=== PATIENT | female | born 1955 | race Asian ===

== ENCOUNTER 2018-07-01 09:02 | Emergency (ER) | payer BC ==
[2018-07-01 09:46] VITALS: BP 138/77
--- NOTE | 2018-07-01 10:56 | UC ---
Throat Pain/Nasal Elijah HPI - HPI Summary HPI Summary: 63-year-old woman comes in with more than a week of sinus drainage chest congestion and feeling ill. Overnight she started getting short of breath with some wheezing. She does have a history of asthma. Now she also has a frontal headache. She has psoriatic arthritis. She took her asthma medications morning which did help with the shortness of breath. No fever. - History of Current Complaint Chief Complaint: UCGeneralIllness Stated Complaint: CHEST CONGESTION, AND ASTHMA Time Seen by Provider: 07/01/18 10:43 Pain Intensity: 0 - Allergies/Home Medications Allergies/Adverse Reactions: Allergies Allergy/AdvReac Type Severity Reaction Status Date / Time celecoxib [From Celebrex] Allergy Hives Verified 07/01/18 09:35 ciprofloxacin Allergy Vomiting Verified 07/01/18 09:35 clarithromycin [From Biaxin] Allergy Vomiting, Verified 07/01/18 09:35 diarrhea hydroxychloroquine Allergy Hives Verified 07/01/18 09:35 [From Plaquenil] SHRIMP Allergy Hives Uncoded 07/01/18 09:35 PMH/Surg Hx/FS Hx/Imm Hx - Additional Past Medical History Additional PMH: Psoriatic arthritis Endocrine History: Diabetes Respiratory History: Asthma - Surgical History Surgical History: Yes Surgery Procedure, Year, and Place: LEFT ROTATOR CUFF REPAIR 11/2011 [facility]. RIGHT KNEE ACL-2010 [facility]. 2 C-SECTIONS. RT WRIST REMOVAL GANGLION CYST 1997. BILAT CATARACTS 2014 [facility]. left middle finger distal joint fused 06/16/15. RT BREAST LUMPECTOMY - 2003. L4-5 laminectomy - [place] 12/2014. LEFT HAND SURGERY [facility] 2013. RIGHT TOE SURGERY. 01/2018 - right rotator cuff repair w/ Dr Maksim Martinez @ [place] - Family History Known Family History: Positive: None - Social History Alcohol Use: None Substance Use Type: None Substance Use Comment - Amount & Last Used: oxycodone Smoking Status (MU): Never Smoked Tobacco Have You Smoked in the Last Year: No - Immunization History Most Recent Influenza Vaccination: 2012 Most Recent Tetanus Shot: 2002 Most Recent Pneumonia Vaccination: 2002 Review of Systems Constitutional: Chills Skin: Negative Eyes: Drainage ENT: Sore Throat, Nasal Discharge, Sinus Congestion, Sinus Pain/Tenderness Respiratory: Shortness Of Breath, Cough, Other - Wheezing Cardiovascular: Negative Gastrointestinal: Negative Motor: Negative Neurovascular: Negative Musculoskeletal: Negative Neurological: Negative Psychological: Negative Is Patient Immunocompromised?: Yes - psoriatic arthritis medication All Other Systems Reviewed And Are Negative: Yes Physical Exam Triage Information Reviewed: Yes Appearance: No Pain Distress - MILD, Well-Nourished, Ill-Appearing Vital Signs: Initial Vital Signs Temp 97 F 07/01/18 09:41 Pulse 100 07/01/18 09:41 Resp 18 07/01/18 09:41 BP 138/77 07/01/18 09:41 Pulse Ox 99 07/01/18 09:41 Vital Signs Reviewed: Yes Eyes: Positive: Discharge ENT: Positive: Pharyngeal erythema, Nasal congestion, Nasal drainage, TMs normal. Negative: Tonsillar swelling Neck exam: Normal Neck: Positive: Supple, Nontender Respiratory: Positive: No respiratory distress, No accessory muscle use, Rhonchi Cardiovascular Exam: Normal Cardiovascular: Positive: RRR Musculoskeletal Exam: Normal Musculoskeletal: Positive: Strength Intact, ROM Intact Neurological Exam: Normal Neurological: Positive: Alert Psychological Exam: Normal Psychological: Positive: Age Appropriate Behavior Skin Exam: Normal Throat Pain/Nasal Course/Dx - Course Course Of Treatment: At this time the patient is getting worse and she has a potential for being immunocompromised to to her psoriatic arthritis medication. We will start Augmentin which she tells me he works for her. Also prescribed prednisone. We discussed the use of it and her diabetes that right now the patient plans on taking the prednisone as needed and also watch her sugars closely. She will go and use her asthma medications at home. Follow-up with primary care doctor recheck checked sooner if worse - Differential Dx/Diagnosis Provider Diagnoses: BRONCHITIS. ASTHMA. SINUSITIS. CONJUNCTIVITIS Discharge - Sign-Out/Discharge Documenting (check all that apply): Patient Departure All imaging exams completed and their final reports reviewed: No Studies - Discharge Plan Condition: Stable Disposition: HOME Prescriptions: Amoxicillin/Clavulanate TAB* [Augmentin TAB 875*] 875 mg PO BID #20 tab predniSONE TAB* [Deltasone 20 MG TAB*] 40 mg PO DAILY #10 tab Tobramycin 0.3% OPHTH.JOHNNY* 1 drop BOTH EYES Q4H #1 btl Patient Education Materials: Acute Bronchitis (ED), Asthma (ED), Sinusitis (ED) , Conjunctivitis (ED) Referrals: Karime Eric MD [Primary Care Provider] - - Billing Disposition and Condition Condition: STABLE Disposition: Home
== END 2018-07-01 11:05 | disposition home or self-care (01) ==
LOC: UCEAST 09:02
DX: J45.909 Unspecified asthma, uncomplicated (principal); J32.9 Chronic sinusitis, unspecified; H10.30 Unspecified acute conjunctivitis, unspecified eye; Z88.6 Allergy status to analgesic agent; Z88.1 Allergy status to other antibiotic agents; Z91.013 Allergy to seafood
CPT/HCPCS: 99212; G0463

== ENCOUNTER → 2019-06-20 09:54 | Day surgery (SDC) | payer MEDICARE ==
[~2019-06-20 09:54] MED LIST: Buffered Lidocaine 1% SYRIN* 1 ML/SYRINGE INTRADERM ONE; Bupivacaine 0.25% SDV PF* 10 ML VIAL INJ ONE; Dexamethasone IV* 4 MG/ML 1 ML (4 MG) IV SLOW PU ONE; Dexamethasone IV* 4 MG/ML 1 ML (4 MG) ONE; DiMENhydriNATE IV* 50 MG/ML VIAL IV PUSH PRN; Lactated Ringers 1000 ML Bag* 1,000 ML IV SCH; Lidocaine 1% INJ* 10 MG/ML 30 ML SDV ONE; Lidocaine 2% PF * 5 ML VIAL ONE; Midazolam* 1 MG/ML 2 ML VIAL (2 MG) ONE; Naloxone* 0.4 MG/ML 1 ML VIAL IV PRN; Ondansetron INJ* 2 MG/ML VIAL IV PRN; Ondansetron INJ* 2 MG/ML VIAL ONE; Propofol* 10 MG/ML 20 ML BTL ONE; ceFAZolin 2 GM in NS PREMIX(*) 2 GM/100 ML BAG IVPB ONE; fentaNYL* 50 MCG/ML 2 ML VIAL (100 MCG VIAL) IV PRN; fentaNYL* 50 MCG/ML 2 ML VIAL (100 MCG VIAL) ONE; oxyCODONE/Acetamin 5/325 MG* TAB PO PRN
[2019-06-20 14:58] VITALS: BP 126/77
--- NOTE | 2019-06-20 21:25 | PM ---
CC: Dr. Silver Santacruz * [facility] NOTE: DATE OF VISIT: 06/20/19 CHIEF COMPLAINT: Low back and left leg pain. HISTORY: The patient is a 64-year-old female who is followed in the [facility]. The patient suffers from postlaminectomy syndrome and is scheduled today to undergo a percutaneous dorsal column stimulator trial lead placement. The risks, benefits, and alternatives were discussed with the patient including the risk of infection, bleeding, nerve injury, postdural puncture headache, and failure of the device to work. After going over the procedure in detail as well as the risks, informed consent was obtained. PREOP DIAGNOSIS: Postlaminectomy syndrome. POSTOP DIAGNOSIS: Postlaminectomy syndrome. PROCEDURE: Dorsal column stimulator trial lead placement. ANESTHESIA: Local MAC per Dr. Mercer. SURGEON: Floyd Avendano MD. CONDUIT WORKER: None. ESTIMATED BLOOD LOSS: Minimal. SPECIMEN: None. FLUIDS: Per Anesthesia. DESCRIPTION OF PROCEDURE: The patient was brought to the operating suite and placed prone on the operative table. Her low back was prepped and draped in the usual sterile fashion. Using fluoroscopy, I identified the T11-12 interspace and I anesthetized the skin and subcutaneous tissues over that pedicles of L1 on the right and left side. An #11 blade was used to make a skin yimi and a 14-gauge Coude epidural needle was used to identify the epidural space at the T11-12 level using loss of resistance to air technique. There was no CSF, blood, or paresthesias noted. There was negative aspiration. A 16-contact Infinion lead was passed into the epidural space to the top of the T5 vertebral body. I then used an #11 blade to make a skin yimi over the L1 pedicle. I then used a 14-gauge Coude epidural needle to identify the epidural space using loss of resistance to air technique. There was no CSF, blood, or paresthesias noted. There was negative aspiration. I passed a 16- contact Infinion lead into the epidural space and guided it to the left of midline to lie parallel to the other lead. Lateral fluoroscopic view was taken , which showed good posterior placement in the epidural space. I then started to test the leads and got good back coverage with the placement leads using the upper contacts of the both leads. The stylets and needles were withdrawn. The leads were anchored to the skin using the silicone anchoring boot and 3-0 Prolene suture. A silk suture was used to cinch the lead to the anchor. Mastisol and Steri-Strips were used to secure the leads as well, sterile dressings were applied, and the patient was brought to the recovery room where her stimulator will be programed by the [employer] personal banking representative. She will follow up with us pain clinic as scheduled next week. She has been given my phone number to contact me or the [employer] representatives as needed during the trial and our office will be in touch with her to see how she is doing next week. [id number]/CPS #: [id number] MTDD
== END | disposition home or self-care (01) ==
LOC: OR 09:54
PROVIDERS: ATTEND Anesthesiology Pain Medicine
DX: M96.1 Postlaminectomy syndrome, not elsewhere classified (principal); I10 Essential (primary) hypertension; J45.909 Unspecified asthma, uncomplicated; K21.9 Gastro-esophageal reflux disease without esophagitis; E03.9 Hypothyroidism, unspecified; Z85.3 Personal history of malignant neoplasm of breast; E11.9 Type 2 diabetes mellitus without complications; Z79.84 Long term (current) use of oral hypoglycemic drugs; L40.50 Arthropathic psoriasis, unspecified
CPT/HCPCS: 76000; C1897; J0690; J1100; J2250; J2405; J2704; J3010; J3490

== ENCOUNTER 2019-06-25 18:47 | Emergency (ER) | payer MEDICARE ==
--- OUTSIDE RECORDS SUMMARY | 2019-06-25 18:55 | XMS REPORT | Continuity of Care Document ---
:1955 External Reference #:[id number] Author Name Salbador Peraza M.D. 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 Onset: 2014 Spinal stenosis of lumbar region Navdeep Ochoa M.D. Onset: 10/21/2014 Paronychia of finger Ngoc Taveras M.D. Onset: 04/26/2015 Localized, primary osteoarthritis of the hand Ngoc Taveras M.D. Onset: Psoriatic arthritis with distal Tacho Zelaya M.D. Onset: 03/16/2016 interphalangeal joint involvement Displacement of lumbar intervertebral disc Tacho Zelaya M.D. Onset: 2015 without myelopathy Lumbar spondylosis Tacho Zelaya M.D. Onset: 03/16/2016 Taking medication Tacho Zelaya M.D. Onset: 03/16/2016 Mild recurrent major depression Tacho Zelaya M.D. Onset: 03/16/2016 Social History Type Date Description Comments Sex Unknown ETOH Use Denies alcohol use Tobacco Use Start: Unknown Patient has never smoked Recreational Drug Use Denies Drug Use Smoking Status Reviewed: 05/23/19 Patient has never smoked Exercise Type/Frequency Exercises regularly Allergies, Adverse Reactions, Alerts Active Allergies Reaction Severity Comments Date Cipro 10/23/2013 Biaxin 10/23/2013 Plaquenil 10/23/2013 Shellfish-derived Products 10/07/2014 Celebrex rash 11/30/2016 Medications Active Medications SIG Qnty Indications Ordering Date Provider Naproxen take 1 tablet by 60tabs L40.50 Salbador Peraza, 05/23/2019 500mg mouth every 12 M.D. Tablets hours as needed for pain maximum daily dose of 2 per day, avoid other nsaids Xeljanz 1 by mouth twice a 60tabs L40.50 Salbador Peraza, 04/08/2019 5mg Tablets day (stop Simponi) M.D. Lotrimin Ultra apply twice daily 12gm B37.83 Salbador Peraza, 10/22/2017 1% as needed for M.D. Cream angular cheilitis Lidocaine Juanpablo use 2 gm on 120gm L40.51 Salbador Peraza, 02/12/2017 5% affected area 2x M.D. Ointment daily as needed for pain, apply w/ swab Cimzia Prefilled 200 mg sc inj 6units Salbador Peraza, 08/11/2016 every other week . M.D. 200mg/ml Kit (clarification from previous script) Lidoderm 1 apply to affected 90units B02.23 Salbador Peraza, 07/11/2016 5% Patches area 12 hours on, M.D. 12 hours off for postherpetic neuralgia (3 refills) Arthritis Glove Use nightly 2units L40.51 Salbador Peraza, 05/11/2016 Medium M.D. Misc Multivitamin daily Ngoc Taveras, 10/23/2013 M.D. Proair HFA 2 puffs by mouth Unknown every 4 hours as 108(90Base) mcg/Act needed Aerosol Hydrocodone-Acetami bid Unknown nophen 5-325mg Tablets Levoxyl 1 by mouth every Unknown 50mcg day Tablets Tizanidine HCL 1 or 2 cap by mouth Unknown 2mg as needed at night Capsules for spasms Lantus as directed 28 u sq Unknown 100Unit/ML Solution Cymbalta 1 by mouth every Unknown 60mg Caps day DR Tipton Clarinex 1 by mouth every Unknown 5mg day Tablets Jardiance 1 by mouth every Unknown 25mg day Tablets Ramipril 1 by mouth every Unknown 10mg day Capsules Vitamin B-12 1 by mouth every Unknown day 1000mcg Tablets Vitamin D-1000 1 po qd Unknown 1000Unit Tablets Omeprazole 1 po qd Unknown 40mg Capsules DR Saritha Horn 1 spray each Unknown nostril Astepro one puff both sides Unknown 0.15% once per day Solution Dulera 2 puffs am and pm Unknown Singulair 1 tab q evening Unknown 10M G Simvastatin 1 po qhs Unknown 40mg Tablets Glipizide 1 po qd Unknown 5mg Tablets Metformin HCL 1 po bid Unknown 1000mg Tablets History Medications Salsalate L40.50 Salbador Peraza, 01/07/2019 - 750mg M.D. 01/07/2019 Tablets Etodolac take 1 tablet by mouth 180tabs L40.50 Salbador Peraza, 01/07/2019 - 400mg twice a day as needed M.D. 05/23/2019 Tablets for pain . avoid other nsaids Simponi inject 50mg 1.5units L40.50 Salbador Peraza, 01/07/2019 - subcutaneously once M.D. 04/08/2019 50mg/0.5ML monthly, stop Taltz Solution Auto-Inject Immunizations Description No Information Available Vital Signs Date Vital Result Comment 05/23/2019 11:46am Height 58.5 inches 4'10.50" Weight 102.25 lb Heart Rate 98 /min BP Systolic Sitting 138 mmHg BP Diastolic Sitting 80 mmHg Pain Level 6 O2 % BldC Oximetry 98 % BMI (Body Mass Index) 21.0 kg/m2 04/08/2019 11:15am Height 58.5 inches 4'10.50" Weight 99.38 lb Heart Rate 94 /min BP Systolic Sitting 142 mmHg BP Diastolic Sitting 82 mmHg Pain Level 6 O2 % BldC Oximetry 98 % BMI (Body Mass Index) 20.4 kg/m2 Results Test Date Facility Test Result H/L Range Note Laboratory test 05/19/2019 [facility] Erythrocyte Sed 4 mm/Hr Normal 0-[address] [place] [address] [phone] C Reactive Protein < 1.00 mg/L Normal <8.01 CBC Auto 05/19/2019 [facility] White Blood 5.1 10^3/uL Normal 3.5-10.[address] [place] [address] [phone] Red Blood Count 4.80 10^6/uL Normal 3.70-4.87 Hemoglobin 12.0 g/dL Normal 12.0-16.0 Hematocrit 37 % Normal 35-47 Mean Corpuscular Volume 77 fL Low 80-97 Mean Corpuscular Hemoglobin 25 pg Low 27-31 Mean Corpuscular HGB Conc 33 g/dL Normal 31-36 Red Cell Distribution Width 20 % High 10-15 Platelet Count 274 10^3/uL Normal 150-450 Mean Platelet Volume 7.6 fL Normal 7.4-10.4 Abs Neutrophils 2.5 10^3/uL Normal 1.5-7.7 Abs Lymphocytes 2.0 10^3/uL Normal 1.0-4.8 Abs Monocytes 0.4 10^3/uL Normal 0-0.8 Abs Eosinophils 0.2 10^3/uL Normal 0-0.6 Abs Basophils 0.1 10^3/uL Normal 0-0.2 Abs Nucleated RBC 0.0 10^3/uL Granulocyte % 49.3 % Lymphocyte % 39.3 % Monocyte % 7.0 % Eosinophil % 3.2 % Basophil % 1.2 % Nucleated Red Blood Cells % 0.1 Comp Metabolic 05/19/2019 [facility] Sodium 138 mmol/L Normal 135-[address] [place] [address] [phone] Potassium 4.7 mmol/L Normal 3.5-5.0 Chloride 103 mmol/L Normal 101-111 Co2 Carbon Dioxide 29 mmol/L Normal 22-32 Anion Gap 6 mmol/L Normal 2-11 Glucose 103 mg/dL High 70-100 Blood Urea Nitrogen 29 mg/dL High 6-24 Creatinine 0.73 mg/dL Normal 0.51-0.95 BUN/Creatinine Ratio 39.7 High 8-20 Calcium 9.5 mg/dL Normal 8.6-10.3 Total Protein 7.5 g/dL Normal 6.4-8.9 Albumin 4.7 g/dL Normal 3.2-5.2 Globulin 2.8 g/dL Normal 2-4 Albumin/Globulin Ratio 1.7 Normal 1-3 Total Bilirubin 0.70 mg/dL Normal 0.2-1.0 Alkaline Phosphatase 76 U/L Normal 34-104 Alt 17 U/L Normal 7-52 Ast 30 U/L Normal 13-39 Egfr Non- 80.0 >60 Egfr 96.8 >60 1 Lipid Profile 05/19/2019 [facility] Triglycerides 322 mg/dL 2 (Trig/Chol/HDL) [address] [place] [address] [phone] Cholesterol 176 mg/dL 3 HDL Cholesterol 43.0 mg/dL 4 LDL Cholesterol 69 mg/dL 5 Laboratory test 04/01/2019 [facility] Erythrocyte Sed 7 mm/Hr Normal 0-29 [address] [place] [address] [phone] C Reactive Protein < 1.00 mg/L Normal <8.01 7 CBC Auto 04/01/2019 [facility] White Blood 4.2 10^3/uL Normal 3.5-10.[address] [place] [address] [phone] Red Blood Count 4.96 10^6/uL High 3.70-4.87 Hemoglobin 12.1 g/dL Normal 12.0-16.0 Hematocrit 38 % Normal 35-47 Mean Corpuscular Volume 77 fL Low 80-97 Mean Corpuscular Hemoglobin 24 pg Low 27-31 Mean Corpuscular HGB Conc 32 g/dL Normal 31-36 Red Cell Distribution Width 18 % High 10-15 Platelet Count 281 10^3/uL Normal 150-450 Mean Platelet Volume 7.7 fL Normal 7.4-10.4 Abs Neutrophils 1.8 10^3/uL Normal 1.5-7.7 Abs Lymphocytes 1.9 10^3/uL Normal 1.0-4.8 Abs Monocytes 0.3 10^3/uL Normal 0-0.8 Abs Eosinophils 0.2 10^3/uL Normal 0-0.6 Abs Basophils 0.1 10^3/uL Normal 0-0.2 Abs Nucleated RBC 0.0 10^3/uL Granulocyte % 41.4 % Lymphocyte % 43.8 % Monocyte % 8.1 % Eosinophil % 5.2 % Basophil % 1.5 % Nucleated Red Blood Cells % 0.2 Comp Metabolic 04/01/2019 [facility] Sodium 139 mmol/L Normal 135-[address] [place] [address] [phone] Potassium 4.8 mmol/L Normal 3.5-5.0 Chloride 101 mmol/L Normal 101-111 Co2 Carbon Dioxide 29 mmol/L Normal 22-32 Anion Gap 9 mmol/L Normal 2-11 Glucose 128 mg/dL High 70-100 Blood Urea Nitrogen 17 mg/dL Normal 6-24 Creatinine 0.75 mg/dL Normal 0.51-0.95 BUN/Creatinine Ratio 22.7 High 8-20 Calcium 10.2 mg/dL Normal 8.6-10.3 Total Protein 7.5 g/dL Normal 6.4-8.9 Albumin 4.5 g/dL Normal 3.2-5.2 Globulin 3.0 g/dL Normal 2-4 Albumin/Globulin Ratio 1.5 Normal 1-3 Total Bilirubin 0.50 mg/dL Normal 0.2-1.0 Alkaline Phosphatase 78 U/L Normal 34-104 Alt 24 U/L Normal 7-52 Ast 37 U/L Normal 13-39 Egfr Non- 77.8 >60 Egfr 94.1 >60 8 Laboratory test 12/31/2018 [facility] C Reactive 1.32 mg/L Normal <8.01 [address] [place] [address] [phone] Erythrocyte Sed Rate 10 mm/Hr Normal 0-30 10 CBC Auto 12/31/2018 [facility] White Blood 4.3 10^3/uL Normal 3.5-10.[address] [place] [address] [phone] Red Blood Count 4.60 10^6/uL Normal 3.70-4.87 Hemoglobin 11.9 g/dL Low 12.0-16.0 Hematocrit 38 % Normal 33-41 Mean Corpuscular Volume 81 fL Normal 80-97 Mean Corpuscular Hemoglobin 26 pg Low 27-31 Mean Corpuscular HGB Conc 32 g/dL Normal 31-36 Red Cell Distribution Width 18 % High 10.5-15 Platelet Count 287 10^3/uL Normal 150-450 Mean Platelet Volume 7.5 fL Normal 7.4-10.4 Abs Neutrophils 2.0 10^3/uL Normal 1.5-7.7 Abs Lymphocytes 1.6 10^3/uL Normal 1.0-4.8 Abs Monocytes 0.4 10^3/uL Normal 0-0.8 Abs Eosinophils 0.2 10^3/uL Normal 0-0.6 Abs Basophils 0.1 10^3/uL Normal 0-0.2 Abs Nucleated RBC 0 10^3/uL Granulocyte % 47.1 % Lymphocyte % 37.5 % Monocyte % 8.9 % Eosinophil % 4.7 % Basophil % 1.8 % Nucleated Red Blood Cells % 0.1 Comp Metabolic 12/31/2018 [facility] Sodium 137 mmol/L Normal 135-[address] [place] [address] [phone] Potassium 4.7 mmol/L Normal 3.5-5.0 Chloride 102 mmol/L Normal 101-111 Co2 Carbon Dioxide 29 mmol/L Normal 22-32 Anion Gap 6 mmol/L Normal 2-11 Glucose 137 mg/dL High 70-100 Blood Urea Nitrogen 23 mg/dL Normal 6-24 Creatinine 0.76 mg/dL Normal 0.51-0.95 BUN/Creatinine Ratio 30.3 High 8-20 Calcium 9.7 mg/dL Normal 8.6-10.3 Total Protein 7.2 g/dL Normal 6.4-8.9 Albumin 4.6 g/dL Normal 3.2-5.2 Globulin 2.6 g/dL Normal 2-4 Albumin/Globulin Ratio 1.8 Normal 1-3 Total Bilirubin 0.40 mg/dL Normal 0.2-1.0 Alkaline Phosphatase 70 U/L Normal 34-104 Alt 23 U/L Normal 7-52 Ast 34 U/L Normal 13-39 Egfr Non- 76.6 >60 Egfr 92.7 >60 11 1 Because ethnic data is not always readily available, this report includes an eGFR for both -Americans and non- Americans. The National Kidney Disease Education Program (NKDEP) does not endorse the use of the MDRD equation for patients that are not between the ages of 18 and 70, are , have extremes of body size, muscle mass, or nutritional status, or are non- or non-. According to the National Kidney Foundation, irrespective of diagnosis, the stage of the disease is based on the level of kidney function: Stage Description GFR(mL/min/1.73 m(2)) 1 Kidney damage with normal or decreased GFR 90 2 Kidney damage with mild decrease in GFR 60-89 3 Moderate decrease in GFR 30-59 4 Severe decrease in GFR 15-29 5 Kidney failure <15 (or dialysis) 2 Desirable: <150 Borderline High: 150-199 High: 200-499 Very High: >500 3 Desirable: <200 Borderline High: 200-239 High: >239 4 Low: <40 Desirable: 40-60 High: >60 5 Desirable: <100 Near Optimal: 100-129 Borderline High: 130-159 High: 160-189 Very High: >189 6 Please check labs 2 days before follow up 7 Please check labs 2 days before follow up 8 Because ethnic data is not always readily available, this report includes an eGFR for both -Americans and non- Americans. The National Kidney Disease Education Program (NKDEP) does not endorse the use of the MDRD equation for patients that are not between the ages of 18 and 70, are , have extremes of body size, muscle mass, or nutritional status, or are non- or non-. According to the National Kidney Foundation, irrespective of diagnosis, the stage of the disease is based on the level of kidney function: Stage Description GFR(mL/min/1.73 m(2)) 1 Kidney damage with normal or decreased GFR 90 2 Kidney damage with mild decrease in GFR 60-89 3 Moderate decrease in GFR 30-59 4 Severe decrease in GFR 15-29 5 Kidney failure <15 (or dialysis) 9 Pleas check labs 2 days before follow up 10 Test Performed by: [facility] [address] [place] [id number] Dany Major M.D. Director of Laboratory 11 Because ethnic data is not always readily available, this report includes an eGFR for both -Americans and non- Americans. The National Kidney Disease Education Program (NKDEP) does not endorse the use of the MDRD equation for patients that are not between the ages of 18 and 70, are , have extremes of body size, muscle mass, or nutritional status, or are non- or non-. According to the National Kidney Foundation, irrespective of diagnosis, the stage of the disease is based on the level of kidney function: Stage Description GFR(mL/min/1.73 m(2)) 1 Kidney damage with normal or decreased GFR 90 2 Kidney damage with mild decrease in GFR 60-89 3 Moderate decrease in GFR 30-59 4 Severe decrease in GFR 15-29 5 Kidney failure <15 (or dialysis) Procedures Date Code Description Status 01/02/2018 [id number] Colonoscopy Completed Medical Devices Description No Information Available Encounters Type Date Location Provider Dx Diagnosis Office Visit 04/08/2019 Rheumatology Salbador Peraza L40.50 Arthropantonella 11:00a [facility] psoriasis, unspecified Z79.899 Other rat exterminator (current) drug therapy M48.061 Spinal stenosis, lumbar region without neurogenic gisella M19.049 Primary osteoarthritis, unspecified hand Office Visit 01/07/2019 Rheumatology Salbador L40.50 Arthropantonella 9:20a [facility] M.D. psoriasis, unspecified Z79.899 Other rat exterminator (current) drug therapy M48.061 Spinal stenosis, lumbar region without neurogenic gisella M19.049 Primary osteoarthritis, unspecified hand Office 12/03/2018 Neurosurgery Vassilios M51.36 Other Visit 2:30p [facility] MD intervertebral disc degeneration, lumbar region M41.9 Scoliosis, unspecified M48.061 Spinal stenosis, lumbar region without neurogenic gisella Assessments Date Code Description Provider 05/23/2019 L40.50 Arthropathic psoriasis, unspecified Salbador Peraza M.D. 05/23/2019 Z79.899 Other care home (current) drug therapy Salbador Peraza M.D. 05/23/2019 M65.872 Other synovitis and tenosynovitis, left Salbador Peraza M.D. ankle and foot 05/23/2019 L40.51 Distal interphalangeal psoriatic Salbador Peraza M.D. arthropathy 04/08/2019 L40.50 Arthropathic psoriasis, unspecified Salbador Peraza M.D. 04/08/2019 Z79.899 Other rat exterminator (current) drug therapy Salbador Peraza M.D. 04/08/2019 M48.061 Spinal stenosis, lumbar region without Salbador Peraza M.D. neurogenic claudicati 04/08/2019 M19.049 Primary osteoarthritis, unspecified hand Salbador Peraza M.D. 01/07/2019 L40.50 Arthropathic psoriasis, unspecified Salbador Peraza M.D. 01/07/2019 Z79.899 Other care home (current) drug therapy Salbador Peraza M.D. 01/07/2019 M48.061 Spinal stenosis, lumbar region without Salbador Peraza M.D. neurogenic claudicati 01/07/2019 M19.049 Primary osteoarthritis, unspecified hand Salbador Peraza M.D. 12/03/2018 M51.36 Other intervertebral disc degeneration, Greg Khan MD lumbar region 12/03/2018 M41.9 Scoliosis, unspecified Greg Khan MD 12/03/2018 M48.061 Spinal stenosis, lumbar region without Greg Khan MD neurogenic claudicati Plan of Treatment Future Appointment(s):07/07/2019 11:40 am - Salbador Peraza M.D. at [facility]05/23/2019 - Salbador Peraza M.D.L40.50 Arthropathic psoriasis, unspecifiedNew Medication:Naproxen 500 mg - take 1 tablet by mouth every 12 hours as needed for pain maximum daily dose of 2 per day, avoid other [id number] Other rat exterminator (current) drug dtddoydU68.872 Other synovitis and tenosynovitis, left ankle and footL40.51 Distal interphalangeal psoriatic arthropathy Functional Status Description No Information Available Mental Status Description No Information Available Referrals Description No Information Available
--- OUTSIDE RECORDS SUMMARY | 2019-06-25 18:55 | XMS REPORT | Continuity of Care Document ---
:1955 External Reference #:[id number] Author Name Karime Eric M.D. Address [address] [place] [address] Care Team Providers Name Role Phone Moisés Avila - Allergy & Immunology Care Team Information Wood Processing Worker Karime Eric - Family Medicine Care Team Information Wood Processing Worker Lilo Valderrama MD - Rheumatology Care Team Information Wood Processing Worker Zan Romo - Pain Medicine Care Team Information Wood Processing Worker [phone] Floyd Avendano - Pain Care Team Information Wood Processing Worker [phone] Franky Garces - Endocrinology, Care Team Information Wood Processing Worker Diabetes & Metabolism [facility] Hospital[facility] - Hospitalist Care Team Information Wood Processing Worker [facility] - Care Team Information Wood Processing Worker [employer] [facility] - Care Team Information Wood Processing Worker [phone] Gastroenterology Kenn Larry - Endocrinology, Diabetes & Care Team Information Wood Processing Worker [phone] Metabolism Silver Santacruz - Neurological Surgery Care Team Information Wood Processing Worker Salbador Peraza MD - Rheumatology Care Team Information Wood Processing Worker Brett Sorensen MD - Orthopaedic Care Team Information Wood Processing Worker Surgery of the Spine Problems Active Problems Provider Date Mixed hyperlipidemia Karime Eric M.D. Onset: 10/05/2011 Type II diabetes mellitus uncontrolled Karime Eric M.D. Onset: 2011 Allergic condition Karime Eric M.D. Onset: 10/05/2011 Degenerative joint disease involving Karime Eric M.D. Onset: 2011 multiple joints Moderate major depression, single episode Karime Eric M.D. Onset: 01/2012 Vitamin D deficiency Karime Eric M.D. Onset: 01/04/2012 Hypothyroidism Karime Eric M.D. Onset: 07/04/2012 Solitary sacroiliitis Karime Eric M.D. Onset: 05/01/2013 Pilonidal cyst with abscess Carlos Guillory M.D. Onset: 06/09/2013 Cellulitis Carlos Guillory M.D. Onset: 06/09/2013 Acute maxillary sinusitis Salbador Aparicio M.D. Onset: 08/11/2014 Psoriatic dactylitis Karime Eric M.D. Onset: 05/16/2016 Asthma without status asthmaticus Karime Eric M.D. Onset: 05/16/2016 Malignant neoplasm of nipple and areola of Karime Eric M.D. Onset: female breast Spinal stenosis of lumbar region Karime Eric M.D. Onset: 05/17/2017 Social History Type Date Description Comments Sex Unknown Tobacco Use Start: Unknown Never Smoked Cigarettes ETOH Use Social Alcohol 1 glass of wine monthly. Tobacco Use Start: Unknown Patient has never smoked Smoking Status Reviewed: 08/27/18 Patient has never smoked Allergies, Adverse Reactions, Alerts Active Allergies Reaction Severity Comments Date Plaquenil hives Hives 09/21/2011 Cipro nausea, vomiting 10/12/2011 Shellfish-derived Products hives 02/18/2013 Biaxin vomiting 05/28/2013 Celebrex rash 12/15/2016 Medications Active Medications SIG Qnty Indications Ordering Provider Date Tizanidine HCL Take 1 To 2 90caps M48.06 Karime Hameed 05/16/2016 2mg Capsules By Annalisa Eric Capsules Mouth 3 Times Daily as Needed Vitamin B12 1000mcg per day Salbador Lee 08/11/2014 100mcg Annalisa Aparicio Tablets Ipratropium inhale 1 bid x 2 1box R05 Ya 01/28/2014 Swoope/Albuterol weeks Anny, AS400 PROGRAMMER Sulfate 0.5-2.5(3)mg/3ML Solution Levoxyl 1 po daily 90tabs 715.09 Karime Hameed 01/23/2013 50mcg Tablets Annalisa Eric Simvastatin 1 po qd 90tabs 272.2 Karime Hameed 10/05/2011 40mg Annalisa Eric Tablets Xeljanz 1 po bid Unknown 5mg Tablets Naproxen 1 by mouth twice Unknown 500mg Tablets a day with food Jardiance 1 tab by mouth Unknown 25mg Tablets every morning Diclofenac Sodium 1 by mouth twice Unknown 25mg a day with food Tablets DR as needed pain Dulera Unknown Aerosol Ramipril 1 by mouth every Unknown 5mg Capsules day Lantus Solostar 30 units at Unknown bedtime 100Unit/ML Solution Pen-Inject Hydrocodone-Acetamino bid Unknown phen 5-325mg Tablets Omeprazole 1 by mouth every Unknown 40mg day Capsules DR Vitamin D 1 by mouth every 30tabs Unknown 1000Unit day Tablets Glipizide 1 po bid 90tabs Unknown 10mg Tablets Cymbalta 1 po qd 296.[address] Saeed Peace 1 po qd Unknown 10mg Tablets Citracal/Vitamin D 1 po qd 30tabs Unknown [id number]-Vkms Tablets Multivitamins 1 po qd 30tabs Unknown Tablets Metformin HCL 1 po bid 180tabs Karime Hameed 1000mg Annalisa Eric Tablets Medications Administered in Office Medication SIG Qnty Indications Ordering Provider Date TB Intradermal Test Karime Eric M.D. 01/04/2016 Injection Immunizations CPT Code Status Date Vaccine Reaction Lot # [id number] Given 04/22/2019 Pneumococcal Immunization [id number] Given 02/20/2019 Tdap Tetanus, W Pertussis [id number] Given 08/03/2018 Influenza Virus Vaccine, [id number] Recombinant D[place] [address] Given 07/26/2017 Influenza Vac, Quadrivalent, [id number] [address] Given 07/05/2016 Influenza Vac, Quadrivalent, [id number] [place] [address] Given 06/29/2015 Influenza Vac, Quadrivalent, [id number] [address] Given 02/04/2015 Pneumococcal Conjugate Vacc-13 [id number] 76242 Given 06/30/2014 DO Not Use Split Influenza [id number] Virus Vaccine 98913 Given 07/08/2013 DO Not Use Split Influenza [id number] Virus Vaccine 37810 Given 07/04/2012 DO Not Use Split Influenza no reaction noted [id number] Virus Vaccine Vital Signs Date Vital Result Comment 06/10/2019 3:33pm BP Systolic 122 mmHg BP Diastolic 62 mmHg Heart Rate 80 /min Body Temperature 97.7 F Respiratory Rate 16 /min Weight 104.00 lb 02/20/2019 8:58am BP Systolic 110 mmHg BP Diastolic 70 mmHg Heart Rate 72 /min Body Temperature 98.0 F Respiratory Rate 16 /min Weight 100.50 lb Results Test Date Facility Test Result H/L Range Note Laboratory test 06/20/2019 [facility] Point of Care 150 mg/dL High 70-100 1 finding Glucose Comp Metabolic 05/19/2019 [facility] Sodium 138 mmol/L Normal 135-145 Panel Potassium 4.7 mmol/L Normal 3.5-5.0 Chloride 103 [...] Egfr Non- 80.0 >60 Egfr 96.8 >60 2 Lipid Profile (Trig/Chol/HDL) 05/19/2019 [facility] Triglycerides 322 mg/dL 3 Cholesterol 176 mg/dL 4 HDL Cholesterol 43.0 mg/dL 5 LDL Cholesterol 69 mg/dL 6 Laboratory test 05/19/2019 [facility] C Reactive Protein < 1.00 mg/L Normal < 8.01 finding CBC Auto Diff 05/19/2019 [facility] White Blood Count 5.1 10^3/uL Normal 3.5- 10.8 Red Blood Count 4.80 10^6/uL Normal 3.70-4.87 [...] % Nucleated Red Blood Cells % 0.1 Laboratory test 05/19/2019 [facility] Erythrocyte Sed Rate 4 mm/Hr Normal 0-29 finding Comp Metabolic Panel 04/01/2019 [facility] Sodium 139 mmol/L Normal 135-145 Potassium 4.8 mmol/L Normal 3.5-5.0 Chloride 101 [...] Egfr Non- 77.8 >60 Egfr 94.1 >60 7 Laboratory test 04/01/2019 [facility] C Reactive Protein < 1.00 mg/L Normal < 8.01 8 finding CBC Auto Diff 04/01/2019 [facility] White Blood Count 4.2 10^3/uL Normal 3.5- 10.8 Red Blood Count 4.96 10^6/uL High 3.70-4.87 [...] % Nucleated Red Blood Cells % 0.2 Laboratory test finding 04/01/2019 [facility] Erythrocyte Sed Rate 7 mm/Hr Normal 0-29 9 1 Engagement Lead: [id number] 2 Because ethnic data is not always readily [...] 15-29 5 Kidney failure <15 (or dialysis) 3 Desirable: <150 Borderline High: 150-199 High: 200-499 Very High: >500 4 Desirable: <200 Borderline High: 200-239 High: >239 5 Low: <40 Desirable: 40-60 High: >60 6 Desirable: <100 Near Optimal: 100-129 Borderline High: 130-159 High: 160-189 Very High: >189 7 Because ethnic data is not always readily [...] 15-29 5 Kidney failure <15 (or dialysis) 8 Please check labs 2 days before follow up 9 Please check labs 2 days before follow up Procedures Date Code Description Status 06/16/2019 [id number] Mammogram Completed 06/14/2018 [id number] Mammogram Completed 06/12/2018 [id number] Mammogram Completed 01/02/2018 [id number] Colonoscopy Completed 12/07/2017 [id number] Diabetic Retinal Eye Exam Completed 06/13/2017 [id number] Mammogram Completed 06/12/2016 [id number] Mammogram Completed 02/12/2015 [id number] Mammogram Completed 12/03/2013 [id number] Mammogram Completed 07/03/2012 [id number] Mammogram Completed Medical Devices Description No Information Available Encounters Type Date Location Provider Dx Diagnosis Office Visit 02/20/2019 [facility] Office Karime Hameed Z00.00 Encntr for general 9:00a Annalisa Eric adult medical exam w/o abnormal findings E11.65 Type 2 diabetes mellitus with hyperglycemia E03.9 Hypothyroidism, unspecified L40.59 Other psoriatic arthropathy J45.998 Other asthma C50.011 Malignant neoplasm of nipple and areola, right female breast M48.061 Spinal stenosis, lumbar region without neurogenic gisella Z23 Encounter for immunization Assessments Date Code Description Provider 06/10/2019 E11.65 Type 2 diabetes mellitus with Karime Eric M.D. hyperglycemia 06/10/2019 J45.998 Other asthma Karime Eric M.D. 06/10/2019 M48.061 Spinal stenosis, lumbar region without Karime Eric M.D. neurogenic claudicati 06/10/2019 M25.561 Pain in right knee Karime Eric M.D. 04/22/2019 Z23 Encounter for immunization Karime Eric M.D. 02/20/2019 Z00.00 Encounter for general adult medical Karime Eric M.D. examination without abno 02/20/2019 E11.65 Type 2 diabetes mellitus with Karime Eric M.D. hyperglycemia 02/20/2019 E03.9 Hypothyroidism, unspecified Karime Eric M.D. 02/20/2019 L40.59 Other psoriatic arthropathy Karime Eric M.D. 02/20/2019 J45.998 Other asthma Karime Eric M.D. 02/20/2019 C50.011 Malignant neoplasm of nipple and areola, Karime Eric M.D. right female breast 02/20/2019 M48.061 Spinal stenosis, lumbar region without Karime Eric M.D. neurogenic claudicati 02/20/2019 Z23 Encounter for immunization Karime Eric M.D. Plan of Treatment Future Appointment(s):12/10/2019 1:00 pm - Nancy Lora M.D. at [facility] [id number]/10/2019 - Karime Eric M.D.E11.65 Type 2 diabetes mellitus with hyperglycemiaComments:hemoglobin A1c is coming down nicely.You could try a keto or keto light like food program.you could homeopathy at [facility]. [email or web address] [email or web address] warren is the homeopath. tapping/ emotional freedom techniqueeven though (i'm addicted sugar and carbs,) I completely love and accept myself.1 minute a day, every day , over 6 months/over time.J45.998 Other asthmaComments:Stable. Continue present meds.M48.061 Spinal stenosis, lumbar region without neurogenic claudicatiComments:agree with the spinal stimulator.recommend you ask Dr. Chavez about medical marijuana. consult with the [employer] store [place].M25.561 Pain in right kneeComments:You're going to have to figure out which surgery to get first.AllComments:Medication Management Patient Understands medications she' s taking? Yes No Are there Barriers to Adherence? Yes No Has the patient been asked about herbal supplements and therapies, and OTC meds? Yes No Functional Status Description No Information Available Mental Status Description No Information Available Referrals Refer to Reason for Referral Status Appt Date Brett Sorensen MD 3rd opinion back problems Scheduled 05/15/[address] [place], [place] [id number] [phone]
[2019-06-25 19:07] VITALS: BP 141/74
[2019-06-25] MEDS ORDERED: Lidocaine 2% PF * 5 ML VIAL INJ ONE (19:23)
[2019-06-25] MEDS ORDERED: Cephalexin CAP* 500 MG PO ONE (19:25)
--- NOTE | 2019-06-25 19:33 | UC ---
Upper Extremity HPI - HPI Summary HPI Summary: 64 year old female with PMH + for psoriatic arthritis, IDDM, present after cutting ring left finger on tuna can this evening at 5 PM. Last tetanus 01/2019 , routine check up. Full ROM, sensation. Has h/o infection/ abscess at L middle finger requiring debridement. Bleeding controlled. - History of Current Complaint Chief Complaint: UCLaceration Stated Complaint: LEFT RING FINGER LAC Time Seen by Provider: 06/25/19 19:10 Hx Obtained From: Patient ?: No Onset/Duration: Sudden Onset Severity Initially: Mild Severity Currently: Mild Pain Intensity: 3 Pain Scale Used: 0-10 Numeric Location Of Pain: Is Discrete @ - ring left Character: Aching Aggravating Factor(s): Movement Associated Signs And Symptoms: Positive: Redness - Allergies/Home Medications Allergies/Adverse Reactions: Allergies Allergy/AdvReac Type Severity Reaction Status Date / Time celecoxib [From Celebrex] Allergy Hives Verified 06/25/19 19:17 ciprofloxacin Allergy Vomiting Verified 06/25/19 19:17 clarithromycin [From Biaxin] Allergy Vomiting, Verified 06/25/19 19:17 diarrhea hydroxychloroquine Allergy Hives Verified 06/25/19 19:17 [From Plaquenil] SHRIMP Allergy Hives Uncoded 06/25/19 19:17 PMH/Surg Hx/FS Hx/Imm Hx Previously Healthy: No - IDDM Endocrine History: Diabetes Cardiovascular History: Cardiac Disease - Surgical History Surgical History: Yes Surgery Procedure, Year, and Place: RIGHT SHOULDER - [facility] 2017. LEFT ROTATOR CUFF REPAIR 11/2011 [facility]. RIGHT KNEE ACL-2010 [facility]. 2 C-SECTIONS. RT WRIST REMOVAL GANGLION CYST 1997. RIGHT SECOND TOE [place]. LEFT SHOULDER [facility]. BILAT CATARACTS 2014 [facility]. left middle finger distal joint fused 06/16/15. RT BREAST LUMPECTOMY - 2003. L4-5 laminectomy - [facility] 12/2014. LEFT HAND SURGERY [facility] 2013. RIGHT TOE SURGERY. 01/2018 - right rotator cuff repair w/ Dr Maksim Martinez @ [place] - Family History Known Family History: Positive: None, Non-Contributory - Social History Alcohol Use: None Substance Use Type: None Substance Use Comment - Amount & Last Used: oxycodone Smoking Status (MU): Never Smoked Tobacco Have You Smoked in the Last Year: No Household Exposure Type: Cigarettes - Immunization History Most Recent Influenza Vaccination: 2012 Most Recent Tetanus Shot: 2002 Most Recent Pneumonia Vaccination: 2002 Review of Systems All Other Systems Reviewed And Are Negative: Yes Motor: Positive: Decreased ROM Musculoskeletal: Positive: Edema Is Patient Immunocompromised?: No Physical Exam Triage Information Reviewed: Yes Appearance: Well-Appearing, No Pain Distress, Well-Nourished Vital Signs: Initial Vital Signs Temp 98.5 F 06/25/19 19:05 Pulse 96 06/25/19 19:05 Resp 18 06/25/19 19:05 BP 141/74 06/25/19 19:05 Pulse Ox 95 06/25/19 19:05 Vital Signs Reviewed: Yes Eyes: Positive: Conjunctiva Clear Musculoskeletal: Positive: Strength Intact - all fingers, MCP, wrist L hand., ROM Intact - all fingers, MCP, wrist L hand., No Edema - left hand Neurological Exam: Normal Neurological: Positive: Other: - SITLT 4th finger L Psychological Exam: Normal Skin: Positive: Other - ~ 1 cm laceration, full thickness on ring DIP, + minimal bleeding, no FB noted, SITLT around area, full AROM of DIP, PIP 4th finger. Procedures - Laceration/Wound Repair 1 Location: upper extremity - ring finger L hand Description: Linear Anesthesia: Local, 2.0%, Lido Length, Depth and Shape: 1cm x 5mm x 5mm Betadine Prep?: No Irrigated w/ Saline (ccs): 100 Laceration/Wound Explored: clean Closure: Single Layer Debridement: minimal Suture Type: Nylon Number of Sutures: 4 Layer Closure?: No Sterile Dressing Applied?: No Upper Extremity Course/Dx - Course Course Of Treatment: - 4 sutures placed into left ring finger- uncomplicated. - Up to date on tetanus - Antibiotics given due to past medical history- keflex 500mg three times daily x 5 days - No soaking/ submerging wound until suture removed. may wash hands, keep sutures covered until removed except during bathing/ washing hands. keep area dry. - Sutures to be removed within 7-10 days, may follow up with PCP or return for removal - Go to PCP or return with redness, drainage, increased pain, decreased movement. - Tylenol as needed for pain, elevate. - Differential Dx/Diagnosis Differential Diagnosis/HQI/PQRI: Strain, Sprain Provider Diagnosis: Laceration of left index finger Discharge ED - Sign-Out/Discharge Documenting (check all that apply): Patient Departure All imaging exams completed and their final reports reviewed: No Studies - Discharge Plan Condition: Good Disposition: HOME Prescriptions: Cephalexin CAP* [Keflex CAP*] 500 mg PO TID #14 cap Patient Education Materials: Finger Laceration (ED) Referrals: Karime Eric MD [Primary Care Provider] - Additional Instructions: - 4 sutures placed into left ring finger. - Up to date on tetanus - Antibiotics given due to past medical history- keflex 500mg three times daily x 5 days - No soaking/ submerging wound until suture removed. may wash hands, keep sutures covered until removed except during bathing/ washing hands. keep area dry. - Sutures to be removed within 7-10 days, may follow up with PCP or return for removal - Go to PCP or return with redness, drainage, increased pain, decreased movement. - Tylenol as needed for pain, elevate. - Billing Disposition and Condition Condition: GOOD Disposition: Home - Attestation Statements Provider Attestation: I was available for consult. This patient was seen by the ROBEL. The patient was not presented to, seen by, or examined by me. -Richard
== END 2019-06-25 20:34 | disposition home or self-care (01) ==
LOC: UCEAST 18:47
DX: S61.215A Laceration without foreign body of left ring finger without damage to nail, initial encounter (principal); W26.8XXA Contact with other sharp object(s), not elsewhere classified, initial encounter; Y93.G1 Activity, food preparation and clean up; Y92.010 Kitchen of single-family (private) house as the place of occurrence of the external cause; Y99.8 Other external cause status
CPT/HCPCS: 12031; 99212; A9270-GY; G0463

== ENCOUNTER 2020-04-20 10:44 | Observation (INO) ==
[~2020-04-20 10:44] MED LIST changes: +Buffered Lidocaine 1% SYRIN 1 ml INTRADERM ONE; -Buffered Lidocaine 1% SYRIN* 1 ML/SYRINGE INTRADERM ONE; -Bupivacaine 0.25% SDV PF* 10 ML VIAL INJ ONE; -Dexamethasone IV* 4 MG/ML 1 ML (4 MG) IV SLOW PU ONE; -Dexamethasone IV* 4 MG/ML 1 ML (4 MG) ONE; -DiMENhydriNATE IV* 50 MG/ML VIAL IV PUSH PRN; +Famotidine IV 10 MG/ML 2 ml VIAL (20 mg) IV ONE; -Lactated Ringers 1000 ML Bag* 1,000 ML IV SCH; +Lactated Ringers 1000 ml BAG 1,000 ML IV SCH; -Lidocaine 1% INJ* 10 MG/ML 30 ML SDV ONE; -Lidocaine 2% PF * 5 ML VIAL ONE; -Midazolam* 1 MG/ML 2 ML VIAL (2 MG) ONE; -Naloxone* 0.4 MG/ML 1 ML VIAL IV PRN; -Ondansetron INJ* 2 MG/ML VIAL IV PRN; -Ondansetron INJ* 2 MG/ML VIAL ONE; -Propofol* 10 MG/ML 20 ML BTL ONE; -ceFAZolin 2 GM in NS PREMIX(*) 2 GM/100 ML BAG IVPB ONE; -fentaNYL* 50 MCG/ML 2 ML VIAL (100 MCG VIAL) IV PRN; -fentaNYL* 50 MCG/ML 2 ML VIAL (100 MCG VIAL) ONE; -oxyCODONE/Acetamin 5/325 MG* TAB PO PRN
[2020-04-20] MEDS ORDERED: ceFAZolin 2 GM PREMIX 2 GM/50 ML BAG ONE (10:57)
[2020-04-20] MEDS ORDERED: Buffered Lidocaine 1% SYRIN 1 ml INTRADERM ONE ×2 (10:57→11:25)
[2020-04-20] MEDS ORDERED: Famotidine IV 10 MG/ML 2 ml VIAL (20 mg) ONE (10:57)
[2020-04-20] MEDS ORDERED: fentaNYL 100 mcg/2 ml 50 MCG/ML VIAL ONE (11:13)
[2020-04-20] MEDS ORDERED: Midazolam 2 mg/2 ml VIAL 1 mg/ml 2 ml VIAL (2 mg) ONE (11:14)
[2020-04-20 12:12] LABS: BUN/Creatinine Ratio 18.8 (8-20); Calcium 8.9 mg/dL (8.6-10.3); EGFR African American 112.3 (>60); EGFR Non-African American 92.8 (>60)
[2020-04-20 12:24] LABS: Potassium 4.5 mmol/L (3.5-5.0)
[2020-04-20] MEDS ORDERED: Lidocaine 2% PF 5 ML VIAL ONE (14:34)
[2020-04-20] MEDS ORDERED: Dexamethasone IV 4 MG/ML VIAL 1 ml VIAL ONE (14:34)
[2020-04-20] MEDS ORDERED: Bupivacaine 0.5% SDV PF 30ML VIAL ONE (14:35)
[2020-04-20] MEDS ORDERED: Magnesium Hydroxide LIQ 30 ML UDC PO PRN (15:09)
[2020-04-20] MEDS ORDERED: Lactulose 30 ml UDC PO PRN (15:09)
[2020-04-20] MEDS ORDERED: oxyCODONE/Acetamin 5/325 mg TAB PO PRN (15:09)
[2020-04-20] MEDS ORDERED: Ondansetron 4 mg VIAL 2 MG/ML 2 ml VIAL IV PRN (15:09)
[2020-04-20] MEDS ORDERED: Ondansetron ODT 4 mg TAB 4 MG TAB PO PRN (15:09)
[2020-04-20] MEDS ORDERED: diPHENhydraMINE 25 mg TAB PO PRN (15:09)
[2020-04-20] MEDS ORDERED: diPHENhydraMINE IV 50 MG/ML 1 ml VIAL (BENADRYL) IV PRN (15:09)
[2020-04-20] MEDS ORDERED: Ondansetron 4 mg VIAL 2 MG/ML 2 ml VIAL ONE (15:34)
[2020-04-20] MEDS ORDERED: oxyCODONE/Acetamin 5/325 mg TAB ONE (17:30)
[2020-04-20] MEDS: Lactated Ringers 1000 ml BAG 1,000 ML IV SCH (18:03)
[2020-04-20] MEDS ORDERED: Senna TAB 8.6 mg TAB PO PRN (18:19)
[2020-04-20] MEDS ORDERED: Albuterol HFA INHALER 8 gm MDI INH PRN (18:19)
[2020-04-20] MEDS ORDERED: Dextrose 50% Syringe 50 ml 25 GM/50 ML SYRINGE IV PUSH PRN (18:23)
[2020-04-20] MEDS ORDERED: Insulin GLARGINE 100 un/ml 10 ml VIAL SUBCUT SCH (19:00)
[2020-04-20] MEDS: Mometasone/Formoter 200/5 MDI INH SCH (19:41)
[2020-04-20] MEDS: Morphine ER 15 mg (*) ** extended release PO SCH (19:51)
[2020-04-20] MEDS: oxyCODONE/Acetamin 5/325 mg TAB PO PRN (20:48)
[2020-04-20] MEDS: Magnesium Hydroxide LIQ 30 ML UDC PO SCH (20:51)
[2020-04-20] MEDS: CMC:Omeprazole 20 mg CAP (NF) PO SCH (20:57)
[2020-04-20] MEDS ORDERED: DULoxetine DR 30 mg CAP PO SCH (21:00)
[2020-04-20] MEDS: ceFAZolin 1 GM ADVAN 1 GM in NS 0.9% 50 ML 50 ML IVPB SCH (22:44)
[2020-04-21] MEDS: oxyCODONE/Acetamin 5/325 mg TAB PO PRN ×3 (00:56→12:11)
[2020-04-21] MEDS: Lactated Ringers 1000 ml BAG 1,000 ML IV SCH (04:20)
[2020-04-21 04:55] LABS: Hematocrit 35 % (35-47); Hemoglobin 11.6 g/dL (12.0-16.0); Mean Platelet Volume 6.8 fL (7.4-10.4); Platelet Count 201 10^3/uL (150-450)
[2020-04-21 05:13] LABS: BUN/Creatinine Ratio 12.3 (8-20); Calcium 8.6 mg/dL (8.6-10.3); EGFR African American 96.5 (>60); EGFR Non-African American 79.8 (>60); Potassium 4.6 mmol/L (3.5-5.0)
[2020-04-21] MEDS: ceFAZolin 1 GM ADVAN 1 GM in NS 0.9% 50 ML 50 ML IVPB SCH ×2 (06:03→13:43)
[2020-04-21] MEDS: Morphine ER 15 mg (*) ** extended release PO SCH (07:35)
[2020-04-21] MEDS: Magnesium Hydroxide LIQ 30 ML UDC PO SCH (08:48)
[2020-04-21] MEDS: CMC:Omeprazole 20 mg CAP (NF) PO SCH (08:49)
[2020-04-21] MEDS: Mometasone/Formoter 200/5 MDI INH SCH (08:51)
[2020-04-21] MEDS ORDERED: Vitamin THERAPEUTIC TAB PO SCH (09:00)
[2020-04-21 11:17] VITALS: BP 146/67
[2020-04-21] MEDS ORDERED: Simvastatin 20 mg TAB (NF) PO SCH (18:00)
== END 2020-04-21 15:00 | disposition home or self-care (01) ==
LOC: OR 10:44 → SSU 15:09 → INTOOBSV 15:09
PROVIDERS: ADMIT Orthopaedic Surgery Adult Reconstructive Orthopaedic Surgery; ATTEND Orthopaedic Surgery Adult Reconstructive Orthopaedic Surgery